=== PATIENT | male | born 1995 | race Caucasian/White ===

== ENCOUNTER 2025-07-06 15:27 | Emergency (ER) | payer OTHER, SELFPAY ==
--- NOTE | 2025-07-06 15:38 | ED.URI ---
HPI - URI/Sore Throat General Chief Complaint: Upper Respiratory Infection Stated Complaint: Congestion / sore throat Time Seen by Provider: 07/06/25 15:38 Source: patient Mode of arrival: ambulatory Limitations: no limitations History of Present Illness HPI Narrative: 30-year-old male presents with complaint of soft tissues to nares and sinuses are inflamed but does not have any mucus . Did have a sore throat 4 days ago but has resolved. Has dry cough that started 2 days ago. Patient states that he feels short of breath but feels that it is because he feels congested in his nose although he does not have mucus there. Is not taking any [id number] medications to treat his symptoms. Patient states that his and kids were both sick with fevers but symptoms resolved. All systems reviewed and negative except as noted above. Related Data Allergies Allergy/AdvReac Type Severity Reaction Status Date / Time No Known Allergies Allergy Verified 07/06/25 15:34 PMFSH Comments At time of signature, agree with nursing past medical, surgical, social and family history. There is no relevant family history pertinent to the presenting complaint. Exam Narrative: GENERAL: This is a well-nourished, well-developed patient, in no apparent distress. HEAD: normocephalic, atraumatic. EYES: PERRL. Sclera clear/white. Vision is grossly intact. EARS: External ears normal, auditory canals clear and without drainage, TMs normal without perforation. Hearing grossly intact. NOSE: External nose normal with no obvious nasal discharge, Nares are erythematous with mild swelling THROAT: Mucous membranes moist, erythematous with postnasal drainage NECK: Neck supple, non-tender without lymphadenopathy, masses or thyromegaly. CARDIOVASCULAR: Regular rate and rhythm without murmurs, gallops, or rubs. RESPIRATORY: Clear to auscultation. Breath sounds equal bilaterally. No wheezes, rales, or rhonchi. SKIN: warm, Dry, intact with no suspicious lesions or rash, good texture and turgor. NEURO: awake, alert, and oriented to person, place and time. There were no obvious focal neurologic abnormalities. EXTREMITIES: No joint tenderness, effusion, or edema noted. Course Course Level of Care: Express Care Visit Vital Signs Vital signs: Vital Signs Temperature 36.6 C 07/06/25 15:39 Pulse Rate 95 07/06/25 15:39 Respiratory Rate 14 07/06/25 15:39 Blood Pressure 144/77 H 07/06/25 15:39 Pulse Oximetry 98 07/06/25 15:39 Oxygen Delivery Room Air 07/06/25 15:39 Temperature 36.6 C 07/06/25 15:39 Pulse Rate 95 07/06/25 15:39 Respiratory Rate 14 07/06/25 15:39 Blood Pressure 144/77 H 07/06/25 15:39 Pulse Oximetry 98 07/06/25 15:39 Oxygen Delivery Room Air 07/06/25 15:39 reviewed MDM - URI/Sore Throat MDM Narrative Medical decision making narrative: negative COVID and influenza. Patient's lungs are clear to auscultation. Recommend [id number] medications to treat viral symptoms. Patient is well-appearing, nontoxic. Differential Diagnosis Differential diagnosis: Likely upper respiratory infection, sinusitis, viral infection, influenza and other ( COVID) Lab Data Labs: Lab Results 07/06/25 Range/Units 16:11 POC Influenza A Ag Negative (Negative) POC Influenza B Ag Negative (Negative) POC SARS CoV-2 Ag Negative (Negative) Discharge Plan Discharge Clinical Impression: Viral upper respiratory tract infection with cough Patient Disposition: Home Condition: Stable Instructions: Upper Respiratory Infection in Children (ED) Additional Instructions: your COVID and influenza test was negative today. Your symptoms are viral and may last 10-14 days. Take medications as prescribed. Drink at least 64 oz water a day. Place cool mist humidifier in bedroom where you sleep. Follow-up with your doctor if symptoms are not improving. Patient Language: Peruvian Prescriptions: New benzonatate 200 mg capsule 200 mg PO TID PRN (Reason: cough) Qty: 20 0RF methylprednisolone [Medrol (Ariel)] 4 mg tablets,dose pack See Rx Instructions PO .COMPLEX Qty: 21 0RF Rx Instructions: orally per package directions fluticasone propionate [Flonase Allergy Relief] 50 mcg/actuation spray,suspension 1 spray intranasal BID Qty: 16 0RF Rx Instructions: administer into each nostril Follow-up/Referrals: Andre,Parish [Other] Stand Alone Forms: Work/School Release IP Time of Disposition: 16:14
[2025-07-06 15:39] VITALS: BP 144/77; PULSE 95; RESP 14; TEMP 36.6; O2SAT 98
[2025-07-06 16:14] LABS: EDCOVIDSCREEN Negative (Negative); EDINFLUASCREEN Negative (Negative); EDINFLUBSCREEN Negative (Negative)
--- OUTSIDE RECORDS SUMMARY | 2025-07-06 18:19 | XMS_ITS | Clinical Summary ---
Author Organization [facility] Address [address] [place] [address] Care Team Providers Care Bag Loader Machine Operator Name Role Phone Parish Powell MD Primary Care Provider [phone] Allergies No known active allergies Medications dicyclomine 20 MG tablet Take 1 tablet (20 mg total) by mouth every 6 (six) hours as needed (pain). 40 tablet 10/09/2019 Active Family History Relation Status Comments Father Alive Mother Alive Social History Tobacco Use Types Packs/Day Years Used Date Smoking Tobacco: Never Smokeless Tobacco: Never Alcohol Use Standard Drinks/Week Comments Yes 0 (1 standard drink = 0.6 oz pur e alcohol) Sex and Gender Information Value Date Recorded Sex Assigned at Not on file Legal Sex Male 7:46 PM CDT Gender Identity Not on file Sexual Orientation Not on file Last Filed Vital Signs Vital Sign Reading Time Taken Comments Blood Pressure 138/90 10/09/2019 7:30 PM SET UP AND LAY OUT INSPECTOR Pulse 66 10/09/2019 7:30 PM SET UP AND LAY OUT INSPECTOR Temperature 36.9 C (98.5 F) 10/09/2019 6:22 PM SET UP AND LAY OUT INSPECTOR Respiratory Rate 16 10/09/2019 7:30 PM SET UP AND LAY OUT INSPECTOR Oxygen Saturation 98% 10/09/2019 7:30 PM SET UP AND LAY OUT INSPECTOR Inhaled Oxygen Concentration - - Weight 99.3 kg (218 lb 14.7 oz) 10/09/2019 6:22 PM SET UP AND LAY OUT INSPECTOR Height 193 cm (6' 4) 10/09/2019 6:22 PM SET UP AND LAY OUT INSPECTOR Body Mass Index 26.65 10/09/2019 6:22 PM SET UP AND LAY OUT INSPECTOR Plan of Treatment Health Maintenance Due Date Last Done Comments Annual Physical 1996 Hepatitis C 2011 DTaP, Tdap and Td Vaccines ( 1 - Tdap) 2012 Hepatitis B Vaccines (1 of 3 - 19+ 3-dose series) 2012 HPV Vaccines (1 - 3-dose SCD M series) 2020 COVID-19 Vaccine (1 - 2023-2 5 season) 2025 Meningococcal B Vaccine Aged Out No l onger eligible based on patient's age to complete this topic Meningococcal Vaccine Aged Out No enmanuel raj eligible based on patient's age to complete this topic Pneumococcal Vaccine: Pediat rics (0 to 5 Years) and At-Risk Patients (6 to 49 Years) Aged Out No longer eligible b ased on patient's age to complete this topic RSV Immunizations Under 20 Months Aged Out No longer eligible based on patient's age to complete this topic Insurance MEDICAID Care Teams Bag Loader Machine Operator Relationship Specialty Start Date End Date Parish Powell MD [address] [place] [address] PCP - General INTERNAL MEDICINE 10/09/19
== END 2025-07-06 16:18 | disposition home or self-care (01) ==
PROVIDERS: Emergency Provider Nurse Practitioner Family
DX: J06.9 Acute upper respiratory infection, unspecified (principal); R05.9 Cough, unspecified; Z20.822 Contact with and (suspected) exposure to COVID-19; Z86.16 Personal history of COVID-19
CPT/HCPCS: 87426; 87804; 99213; G0463

== ENCOUNTER 2025-08-06 17:53 | Emergency (ER) | payer OTHER, SELFPAY ==
--- NOTE | ~2025-08-06 | XR_ITS ---
XR chest 2V HOSTORY: cough for 1 month, drainage and congestion COMPARISON:[ None] FINDINGS: Frontal and lateral views of the chest were obtained. The lungs are clear. The heart size is normal in size. Pulmonary vasculature is unremarkable. Osseous structures are intact. IMPRESSION: No acute lung findings.] [ ] Reviewed, dictated and finalized at location S.
[2025-08-06 18:03] VITALS: BP 160/98; PULSE 88; RESP 18; TEMP 36.6; O2SAT 100
--- OUTSIDE RECORDS SUMMARY | 2025-08-06 18:11 | XMS_ITS | Clinical Summary ---
Author Organization [facility] Address [address] [place] [address] Care Team Providers Care Collet Gluer Name Role Phone Parish Powell MD Primary Care Provider [phone] Allergies No known active allergies Medications dicyclomine [...] Comments Blood Pressure 138/90 10/09/2019 7:30 PM CASKET INSPECTOR Pulse 66 10/09/2019 7:30 PM CASKET INSPECTOR Temperature 36.9 C (98.5 F) 10/09/2019 6:22 PM CASKET INSPECTOR Respiratory Rate 16 10/09/2019 7:30 PM CASKET INSPECTOR Oxygen Saturation 98% 10/09/2019 7:30 PM CASKET INSPECTOR Inhaled Oxygen Concentration - - Weight 99.3 kg (218 lb 14.7 oz) 10/09/2019 6:22 PM CASKET INSPECTOR Height 193 cm (6' 4) 10/09/2019 6:22 PM CASKET INSPECTOR Body Mass Index 26.65 10/09/2019 6:22 PM CASKET INSPECTOR Plan of Treatment Health Maintenance Due Date Last Done Comments Annual Physical 1996 Hepatitis C 2011 DTaP, Tdap and Td Vaccines ( 1 - Tdap) 2012 Hepatitis B Vaccines (1 of 3 - 19+ 3-dose series) 2012 HPV Vaccines (1 - 3-dose SCD M series) 2020 COVID-19 Vaccine (1 - 2023-2 5 season) 2025 Influenza Adult (#1) 2025 Meningococcal B Vaccine Aged Out No [...] complete this topic Insurance MEDICAID Care Teams Collet Gluer Relationship Specialty Start Date End Date Parish Powell MD [address] [place] [address] PCP - General INTERNAL MEDICINE 10/09/19
--- NOTE | 2025-08-06 18:22 | ED.URI ---
HPI - URI/Sore Throat General Chief Complaint: Upper Respiratory Infection Stated Complaint: URI Time Seen by Provider: 08/06/25 17:55 Source: patient Mode of arrival: ambulatory Limitations: no limitations History of Present Illness HPI Narrative: 30 yo M presents with c/o dry cough, drainage, constant feeling of needing to clear throat. Sometimes feels like food is sitting or getting stuck in throat. Has had issues with indigestion for the past 8 years. Has never seen GI specialist but has appt in 4 wks. Use to take omeprazole or pepcid but not taking consistently. Took omeprazole yesterday and felt better but bad again today. At night often feels congested. History of the feeding. Is concerned for lung issues . All systems reviewed and negative except as noted above. Related Data Allergies Allergy/AdvReac Type Severity Reaction Status Date / Time No Known Allergies Allergy Verified 08/06/25 18:10 PMFSH Comments At time of signature, agree with nursing past medical, surgical, social and family history. There is no relevant family history pertinent to the presenting complaint. Exam Narrative: GENERAL: This is a well-nourished, well-developed patient, in no apparent distress. HEAD: normocephalic, atraumatic. EYES: PERRL. Sclera clear/white. Vision is grossly intact. EARS: External ears normal, auditory canals clear and without drainage, TMs normal without perforation. Hearing grossly intact. NOSE: External nose normal with no obvious nasal discharge, nares without redness, no rhinorrhea. THROAT: Mucous membranes moist, posterior pharynx clear. NECK: Neck supple, non-tender without lymphadenopathy, masses or thyromegaly. CARDIOVASCULAR: Regular rate and rhythm without murmurs, gallops, or rubs. RESPIRATORY: Clear to auscultation. Breath sounds equal bilaterally. No wheezes, rales, or rhonchi. SKIN: warm, Dry, intact with no suspicious lesions or rash, good texture and turgor. NEURO: awake, alert, and oriented to person, place and time. There were no obvious focal neurologic abnormalities. EXTREMITIES: No joint tenderness, effusion, or edema noted. Course Course Level of Care: Express Care Visit Vital Signs Vital signs: Vital Signs Temperature 36.6 C 08/06/25 18:03 Pulse Rate 88 08/06/25 18:03 Respiratory Rate 18 08/06/25 18:03 Blood Pressure 160/98 H 08/06/25 18:03 Pulse Oximetry 100 08/06/25 18:03 Oxygen Delivery Room Air 08/06/25 18:03 Temperature 36.6 C 08/06/25 18:03 Pulse Rate 88 08/06/25 18:03 Respiratory Rate 18 08/06/25 18:03 Blood Pressure 160/98 H 08/06/25 18:03 Pulse Oximetry 100 08/06/25 18:03 Oxygen Delivery Room Air 08/06/25 18:03 Reviewed MDM - URI/Sore Throat MDM Narrative Medical decision making narrative: chest x-ray normal. Recommend patient take omeprazole twice a day. Follow-up with GI specialist as scheduled appointment. Also has appointment with his primary care physician on Sunday. He is well-appearing, nontoxic. No distress. Imaging Data My impression: Agree with radiologist Radiologist's impression: XR chest 2V HOSTORY: cough for 1 month, drainage and congestion COMPARISON:[ None] FINDINGS: Frontal and lateral views of the chest were obtained. The lungs are clear. The heart size is normal in size. Pulmonary vasculature is unremarkable. Osseous structures are intact. IMPRESSION: No acute lung findings.] Discharge Plan Discharge Clinical Impression: GERD (gastroesophageal reflux disease), Elevated blood pressure reading Patient Disposition: Home Condition: Stable Instructions: GERD (Gastroesophageal Reflux Disease) (ED) Additional Instructions: your chest x-ray was normal today. Start omeprazole and take as prescribed. Follow-up at appointment with GI specialist in 4 weeks. Patient Language: Senegalese Prescriptions: New omeprazole 20 mg capsule,delayed release(DR/EC) 20 mg PO BID 30 Days Qty: 60 0RF Follow-up/Referrals: UNKNOWN,DOCTOR [Primary Care Provider] Time of Disposition: 19:00
== END 2025-08-06 19:04 | disposition home or self-care (01) ==
PROVIDERS: Emergency Provider Nurse Practitioner Family
DX: K21.9 Gastro-esophageal reflux disease without esophagitis (principal); R03.0 Elevated blood-pressure reading, without diagnosis of hypertension
CPT/HCPCS: 71046; 99213; G0463